=== PATIENT | male | born 1990 | race Caucasian/White ===

== ENCOUNTER 2021-11-10 15:13 | Emergency (ER) | payer MEDICAID ==
[~2021-11-10 15:13] MED LIST: IBUP-1986 PO
== END 2021-11-10 16:36 | disposition left against medical advice (07) ==
LOC: ER 15:13
DX: K08.89 Other specified disorders of teeth and supporting structures (principal); Z53.21 Procedure and treatment not carried out due to patient leaving prior to being seen by health care provider

== ENCOUNTER 2023-03-11 20:16 | Emergency (ER) | payer MEDICAID ==
[~2023-03-11] VITALS: Ht 170.2 cm; Wt 72.4 kg
[2023-03-11 20:24] VITALS: TEMP 97.8
[2023-03-11] MEDS ORDERED: acetaminophen 325mg tablet PO ONE (22:55)
[2023-03-11] MEDS ORDERED: ibuprofen tablet 400 MG TABLET PO ONE (22:55)
[2023-03-11 23:00] VITALS: BP 132/91; PULSE 86; RESP 16; O2SAT 99
== END 2023-03-11 23:36 | disposition home or self-care (01) ==
LOC: ER 20:16
DX: S50.312A Abrasion of left elbow, initial encounter (principal); X58.XXXA Exposure to other specified factors, initial encounter; Y93.89 Activity, other specified; Y92.89 Other specified places as the place of occurrence of the external cause; Y99.8 Other external cause status
CPT/HCPCS: 73080; 99283; J7030; A6449

== ENCOUNTER 2023-03-26 12:23 | Emergency (ER) | payer MEDICAID | END 2023-03-26 13:18 | disposition left against medical advice (07) | LOC: ER 12:23 | DX: T14.90XA Injury, unspecified, initial encounter (principal); Z53.21 Procedure and treatment not carried out due to patient leaving prior to being seen by health care provider; X58.XXXA Exposure to other specified factors, initial encounter; Y93.89 Activity, other specified; Y92.89 Other specified places as the place of occurrence of the external cause; Y99.8 Other external cause status ==

== ENCOUNTER 2023-11-23 10:56 | Emergency (ER) | payer MEDICAID ==
[~2023-11-23] VITALS: Ht 167.6 cm; Wt 74.1 kg
[2023-11-23 11:02] VITALS: BP 135/83; PULSE 89; RESP 18; TEMP 98.4; O2SAT 98
== END 2023-11-23 11:09 | disposition left against medical advice (07) ==
LOC: ER 10:57
DX: Z02.89 Encounter for other administrative examinations (principal); Z53.21 Procedure and treatment not carried out due to patient leaving prior to being seen by health care provider

== ENCOUNTER 2024-08-10 14:07 | Emergency (ER) | payer MEDICAID ==
[~2024-08-10] VITALS: Ht 170.2 cm; Wt 70.4 kg
[2024-08-10 14:17] VITALS: BP 133/79; PULSE 75; RESP 18; TEMP 97.6; O2SAT 99
== END 2024-08-10 16:34 | disposition left against medical advice (07) ==
LOC: ER 14:08
DX: Z02.9 Encounter for administrative examinations, unspecified (principal); Z53.21 Procedure and treatment not carried out due to patient leaving prior to being seen by health care provider